=== PATIENT | male | born 1995 ===

== ENCOUNTER 2024-09-11 10:47 | Outpatient (AMB) | payer BC, SELFPAY ==
--- NOTE | 2024-09-11 10:49 | MHC.PC.OV ---
Vital Signs 09/11/24 10:52 Height 5 ft 5 in Weight 150 lb BMI 25.0 BP 100/70 Blood Pressure Location Lt brachial Position Sitting Respiration 18 Pulse 79 Pulse Source Pulse Oximeter Temp 97.9 F Temp Source Oral Pulse Oximetry (%) 99 Oxygen Delivery Method Room Air Intake Visit Reasons: Establish care with new PCP/PE Intake Note: Pt is here today as a New Patient to est care/ PE Allergies ibuprofen [From Advil] Allergy (Severe, Verified 09/11/24 11:20) Throat swelling aspirn Adverse Reaction (Uncoded 09/11/24 11:17) Anaphylaxis Medication List - Last Reconciled 09/11/24 by Anel Duarte MD melatonin 5 mg PO BEDTIME PRN Tobacco use date assessed: 09/11/24 Dental Screening Dental Screen Date: 09/11/24 Did you have a dental visit in the last 12 months?: Yes Did you have a dental problem in the last 6 months where you did not have access to dental care?: Yes Was dental information given to patient?: Patient has dentist HPI HPI Comments History of Present Illness Details 29-year-old male, here today to establish care with new PCP and for physical exam. He has history of kidney stones, currently asymptomatic. He does not want to get any vaccines. Has intermittent episode of low mood, with positive PHQ-9 today. However patient states he is able to control it with behavioral techniques, does not want referral for counseling or starting any medication at present time. [facility] [place] Medical History (Updated 09/11/24 @ 11:35 by Anel Duarte MD) Depression Vaccine refused by patient Hx of renal calculi Surgical History (Updated 09/11/24 @ 11:22 by Anel Duarte MD) Hx of lithotripsy Family History (Updated 09/11/24 @ 11:25 by Anel Duarte MD) Maternal Grandmother Kidney stone Maternal Aunt Kidney stone Mother Essential hypertension Hyperlipidemia Paternal Grandfather Alzheimer dementia Paternal Grandmother Alzheimer dementia Social History Housing: Apartment Patient Tobacco Use Status: Never used Tobacco e-Cigarette/Vaping Use: Never Used service: No Current occupational status: employed Cognitive needs: No Hearing needs: No Vision needs: No Questionnaire PHQ-9 Over the last 2 weeks, how often have you been bothered by any of the following problems? 1. Little interest or pleasure in doing things: several days 2. Feeling down, depressed, or hopeless: several days 3. Trouble falling or staying asleep, or sleeping too much: several days 4. Feeling tired or having little energy: nearly every day 5. Poor appetite or overeating: not at all 6. Feeling bad about yourself - or that you are a failure or have let yourself or your family down: not at all 7. Trouble concentrating on things, such as reading the newspaper or watching television: nearly every day 8. Moving or speaking so slowly that other people could have noticed. Or the opposite - being so fidgety or restless that you have been moving around a lot more than usual: not at all 9. Thoughts that you would be better off or of hurting yourself in some way: not at all Total score: 9 Depression Screening Interpretation: Positive (Declined referral for counseling and declines to start any medication at present time) Depression Screening Follow-up: Existing condition and Declines treatment Depression Screening Done: Yes 96332 - PHQ-9 Billing: Yes Source: Developed by Drs. Fahad Kee, Jayla Blakely, Jose Rolle and colleagues, with an educational philipp from [employer]. Thrive Questionnaire Date Thrive assessed: 09/11/24 I am a: Patient What is your living situation today?: I have a steady place to live Within the past 12 months, did the food you bought not last and you didn't have the money to get more?: Never true Within the past 12 months, did you worry whether your food would run out before you got money to buy more?: Never true Do you have trouble paying for medicines?: No Do you have trouble getting transportation to medical appointments?: No Do you have trouble paying your heating and electricity bill?: No Do you have trouble taking care of your child, family member or friend?: No Do you have trouble with day-to-day activities such as bathing, preparing meals, shopping, managing finances, etc.?: No Are you currently unemployed and looking for a job?: No Are you interested in more education?: No THRIVE Score: 0 AUDIT C Alcohol Use Questionnaire (AUDIT-C) 1. How often do you have a drink containing alcohol?: Monthly or less 2. How many drinks containing alcohol do you have on a typical day when you are drinking?: 1 or 2 3. How often do you have six or more drinks on one occasion?: Never Total Score: 1 ZAIDA-7 AMB Questionnaire ZAIDA-7 Date ZAIDA - 7 assessed: 09/11/24 Feeling nervous, anxious, or on edge: 0 = Not at all Not being able to stop or control worryin = Not at all Worrying too much about different things: 0 = Not at all Trouble relaxin = Not at all Being so restless that it is hard to sit still: 0 = Not at all Becoming easily annoyed or irritable: 0 = Not at all Feeling afraid as if something awful might happen: 0 = Not at all Total ZAIDA-7 score (0-4 normal; 5-9 mild; 10-14 moderate; 15-21 severe): 0 Source: Developed by Drs. Fahad Kee, Jayla Blakely, Jose Rolle and colleagues, with an educational philipp from [employer]. ZAIDA-7 Assessment Billing ZAIDA-7 Assessment Tool: ZAIDA-7 Assessment 34750 Review of Systems Const Denies body aches, Denies fatigue, Denies fever(s), Denies headache(s) and Denies weakness Eyes Denies change in vision, Denies eye discharge and Denies itchy eyes ENT Denies dizziness, Denies headache(s), Denies nasal congestion, Denies nasal discharge and Denies sore throat Card Denies chest pain, Denies lightheadedness, Denies palpitations and Denies dyspnea Resp Denies chest congestion, Denies cough, Denies dyspnea and Denies wheezing GI Denies abdominal pain, Denies change in bowel habits and Denies heartburn Denies hematuria, Denies difficulty urinating, Denies dysuria, Denies urinary frequency and Denies urinary urgency Musc Reports no additional complaints Skin/Breast Denies breast pain, Denies breast mass, Denies lesions and Denies rash Neuro Denies dizziness, Denies headache(s) and Denies weakness Psych Reports as per HPI Endo Denies fatigue, Denies polydipsia, Denies polyuria and Denies palpitations Canelo/Lymph Denies easy bruising Aller/Immun Denies itchy eyes, Denies seasonal rhinorrhea and Denies wheezing Physical exam (Primary Care) Vital Signs: Last Vital Signs Temp 97.9 F 09/11/24 10:52 Pulse 79 09/11/24 10:52 Resp 18 09/11/24 10:52 BP 100/70 09/11/24 10:52 Pulse Ox 99 09/11/24 10:52 Oxygen Delivery Method Room Air 09/11/24 10:52 BMI result Body Mass Index 25.0 Tobacco/Smoking Status: Tobacco use Status Tobacco use date assessed 09/11/24 09/11/24 10:56 Patient Tobacco Use Status Never used Tobacco 09/11/24 10:56 e-Cigarette/Vaping Use Never Used 09/11/24 10:56 PHQ-9: PHQ-9 Score PHQ-9: Total score 9 09/11/24 11:29 Depression Screening Interpretation: Positive (Declined referral for counseling and declines to start any medication at present time) Depression Screening Follow-up: Existing condition and Declines treatment Thrive Assessment: Date of Thrive Assessment Date Thrive assessed 09/11/24 09/11/24 10:56 Advance Care Planning discussion: Completed/Scanned Date of discussion: 09/11/24 Who was present: Patient Forms completed: Health Care Proxy Time spent: 16-45 minutes Actual minutes spent: 2 Const General: no acute distress and alert Orientation/consciousness: patient oriented x3 HENMT Head: Yes atraumatic Ears: external ears normal, TM's normal bilaterally and EAC's normal General nose exam: Normal external nose present Face and sinus: Yes face symmetric Mouth: Normal oral and palatal mucosa present, oropharynx normal and moist mucous membranes Eyes General: appearance normal, both eyes and all related structures Eyelids: Yes eyelids normal Conjunctivae: conjunctivae normal Sclerae: sclerae normal Pupils: Equal, round and reactive pupils present EOM: EOMs intact bilaterally Neck Neck: Yes full ROM, Yes no lymphadenopathy and Yes supple Thyroid: Thyroid normal Resp Effort & Inspection: normal respiratory effort and able to speak in complete sentences Auscultation: clear to auscultation bilaterally Cardio Rate: regular rate Rhythm: regular rhythm Heart sounds: S1 normal heart sound present and S2 normal heart sound present GI Palpation (GI): Soft to palpation, nontender, no guarding and no masses Auscultation: normal bowel sounds General: Yes no CVA tenderness Male General Exam: No hernia Scrotum: no hydroceles and no inguinal hernias Testes: no testicular mass Back/Spine/Pelvis Back: no CVA tenderness and No back tenderness Skin General skin exam: no rashes or lesions noted Neuro General: patient oriented x3, gait normal, moves all extremities, Normal light touch and pain sensation, no focal motor deficits and CN's II-XI intact bilaterally Cranial nerves: Yes Equal, round and reactive pupils present Cognition (Neuro): normal cognition Gait exam (Neuro): Normal gait present Motor exam (neuro): 5/5 motor strength present throughout Extrem General: Yes normal to inspection, Yes full ROM, Yes no joint enlargement, Yes no pedal edema and Yes normal gait Psych Appearance: grossly normal and well kempt Mental Status: mental status grossly normal Speech and movement: Normal speech and movement present Affect: normal affect Attitude: cooperative Thought process: Normal thought process present Thought content: Normal thought content present Coding Level of Care Code New Pt Prev Care 18-39yr([id number] Diagnoses Annual visit for general adult medical examination with abnormal findings Z00. Encounter for counseling regarding advance directives Z. Vaccine refused by patient Z28.20 Depression, unspecified depression type F32.A Depression Type: unspecified Additional Codes ZAIDA-7 Assessment Billing - ZAIDA-7 Assessment Tool: ZAIDA-7 Assessment 12855 ([id number]) Vital Signs *Quality* - Advance Care Planning discussion: Completed/Scanned ([id number]) Vital Signs *Quality* - Time spent: 16-45 minutes ([id number]) PHQ-9 - 36551 - PHQ-9 Billing: Yes ([id number]) Assessment & Plan Assessment & Plan (1) Annual visit for general adult medical examination with abnormal findings: Code(s): Z00.01 - Encounter for general adult medical examination with abnormal findings (2) Encounter for counseling regarding advance directives: Code(s): Z71.89 - Other specified counseling (3) Vaccine refused by patient: Code(s): Z28.20 - Immunization not carried out because of patient decision for unspecified reason Category: Medical (4) Depression: Comment: Declines treatment Code(s): F32.A - Depression, unspecified Category: Medical Qualifiers: Depression Type: unspecified Qualified Code(s): F32.A - Depression, unspecified Plan The patient's allergy to ibuprofen necessitates avoidance of this medication class, with documentation of the allergy for medical records. The use of melatonin should be intermittently evaluated, particularly during periods off work. Fluid intake should be prioritized to prevent recurrence of kidney stones. Depression symptoms, while not actively treated, require attention; the patient is encouraged to consider mental health resources. Lab work for a comprehensive health assessment is planned, including electrolyte, liver, cholesterol, and vitamin D checks. Vaccinations were addressed, with the patient declining updates but will continue to be part of preventive care discussions. Patient was informed and verbally consented to the use of an ambient scribe for clinic note documentation during this visit. Orders: Orders Basic Metabolic Panel Fasting 09/11/24 Z00.01 - Encounter for general adult medical examination with abnormal findings, Z13.1 - Encounter for screening for diabetes mellitus, Z13.220 - Encounter for screening for lipoid disorders, Z71.89 - Other specified counseling Aspartate Amino Transferase 09/11/24 Z00.01 - Encounter for general adult medical examination with abnormal findings, Z13.1 - Encounter for screening for diabetes mellitus, Z13.220 - Encounter for screening for lipoid disorders, Z71.89 - Other specified counseling Vitamin D 25-OH Total 09/11/24 Z00.01 - Encounter for general adult medical examination with abnormal findings, Z13.1 - Encounter for screening for diabetes mellitus, Z13.220 - Encounter for screening for lipoid disorders, Z71.89 - Other specified counseling Complete Blood Count Auto Diff 09/11/24 Z00.01 - Encounter for general adult medical examination with abnormal findings, Z13.1 - Encounter for screening for diabetes mellitus, Z13.220 - Encounter for screening for lipoid disorders, Z71.89 - Other specified counseling Alanine Aminotransferase 09/11/24 Z00.01 - Encounter for general adult medical examination with abnormal findings, Z13.1 - Encounter for screening for diabetes mellitus, Z13.220 - Encounter for screening for lipoid disorders, Z71.89 - Other specified counseling Lipid Panel 09/11/24 Z00.01 - Encounter for general adult medical examination with abnormal findings, Z13.1 - Encounter for screening for diabetes mellitus, Z13.220 - Encounter for screening for lipoid disorders, Z71.89 - Other specified counseling
[2024-09-11 10:52] VITALS: BP 100/70; PULSE 79; RESP 18; TEMP 36.6; O2SAT 99; BMI 25.0
== END 2024-09-11 11:36 | disposition home or self-care (01) ==
LOC: HO.HMCC 10:47
PROVIDERS: Visit Provider Internal Medicine
DX: Z00.01 Encounter for general adult medical examination with abnormal findings (principal); Z71.89 Other specified counseling; Z28.20 Immunization not carried out because of patient decision for unspecified reason; F32.A Depression, unspecified

== ENCOUNTER → 2024-09-11 10:47 | Outpatient (BNVA) | payer BC, SELFPAY | PROVIDERS: Visit Provider Internal Medicine | DX: Z00.01 Encounter for general adult medical examination with abnormal findings (principal); F32.A Depression, unspecified; Z71.89 Other specified counseling; Z28.20 Immunization not carried out because of patient decision for unspecified reason | CPT/HCPCS: 96127 ==